=== PATIENT | female | born 1940 | race Caucasian/White ===

== ENCOUNTER 2019-04-05 19:38 | Emergency (ER) | payer OTHER, BC ==
[2019-04-05] MEDS ORDERED: ALBUTEROL SO4 0.083% IH SOL 2.5 MG/3 ML VIAL.NEB. NEB ONE ×2 (19:44→20:52)
--- NOTE | 2019-04-05 19:46 | PDOC ---
Rapid Medical Evaluation Chief Complaint: Cold Symptoms Time Seen by Provider: 04/05/19 19:41 Medical Evaluation: 04/05/19 19:42 c/o coyugh, chest discomfort and sore throat. just returned from [place], on cruise, + chills. PE; patient alert ox3. breath sounds clear A: cough with uri P: xray albuterol PMHX: Graves 04/05/19 19:45 Discharge Disposition - Diagnosis URI with cough and congestion - Referrals - Patient Instructions - Post Discharge Activity
[2019-04-05 19:47] VITALS: BP 123/69; PULSE 84; TEMP 97.7; BMI 28.3
[2019-04-05] MEDS ORDERED: DEXAMETHASONE LIQUID 0.5 MG/5 ML 240 ML BULK BOTTLE PO ONE (21:13)
[2019-04-05] MEDS ORDERED: DEXAMETHASONE SOD PHOSPHATE 10 MG/1 ML VIAL ONE (21:14)
--- NOTE | 2019-04-05 21:22 | PDOC ---
History of Present Illness - General Chief Complaint: Cold Symptoms Stated Complaint: COUGH Time Seen by Provider: 04/05/19 19:41 - History of Present Illness Initial Comments: 04/05/19 21:21 78-year-old female with a past medical history of hypothyroidism and irritable bowel syndrome presents for evaluation of cough and chills with associated headache when she coughs. She just returned from a long 14 day cruise from [place] she was exposed to different air conditioning units in different venues Past History - Past Medical History Allergies/Adverse Reactions: Allergies Allergy/AdvReac Type Severity Reaction Status Date / Time No Known Allergies Allergy Verified 04/05/19 20:40 Home Medications: Ambulatory Orders Azithromycin [Zithromax -] 250 mg PO UTDICT #6 tab 04/05/19 Levothyroxine [Synthroid -] 1 PO DAILY 04/05/19 Nebulizer and Compressor [Pediatric Dog Nebulizer Systm] 1 each MC ASDIR PRN #1 each 04/05/19 Sodium Chloride Inhalation [Normal Saline For Inhalation -] 3 ml IH ASDIR #60 vial.neb 04/05/19 COPD: No - Suicide/Smoking/Psychosocial Hx Smoking History: Former smoker Have you smoked in the past 12 months: No If you are a former smoker, when did you quit?: 40 Information on smoking cessation initiated: No Hx Alcohol Use: No Drug/Substance Use Hx: No Review of Systems - Review of Systems Constitutional: Yes: Chills, Diaphoresis. No: Fever Respiratory: Yes: Cough, Orthopnea, Shortness of Breath, Wheezing Neurological: Yes: Headache *Physical Exam - Vital Signs Last Vital Signs Temp Pulse Resp BP Pulse Ox 97.7 F 84 18 123/69 98 04/05/19 19:44 04/05/19 19:44 04/05/19 19:44 04/05/19 19:44 04/05/19 19:44 - Physical Exam Comments: 04/05/19 21:20 HEAD: NC/AT EYES: Conjuntiva clear Ears: Canals and TM's normal NOSE: No d/c THROAT: Moist mucous membrances, oral pharanx clear, uvula midline NECK: Supple without adenopathy CARDIAC: S1 S2 LUNGS: Faint rhonchi bilateral bases otherwise clear ABDOMEN: Soft NT ND MS: Full ROM in all joints without edema NEUROLOGIC: No gross sensory or motor deficits, NVID SKIN: Normal color and temperature no lesions or rashes ED Treatment Course - Medications Given in the ED: ED Medications Discontinued Medications Generic Name Dose Route Start Last Admin Trade Name Loni PRN Reason Stop Dose Admin Dexamethasone 10 mg 04/05/19 21:13 04/05/19 21:15 Decadron Liquid - PO 04/05/19 21:14 1 ml ONCE ONE Administration Medical Decision Making - Medical Decision Making 04/05/19 21:19 78-year-old female with symptoms of pneumonia. Suspicious retrocardial infiltrate. She was on a cruise ship and exposed to different air conditioners in different areas she was away from for 2 weeks. I suspect Legionella I will treat her with azithromycin have her follow-up with her PCP. *DC/Admit/Observation/Transfer Diagnosis at time of Disposition: URI with cough and congestion, Pneumonia - Discharge Dispostion Disposition: HOME Condition at time of disposition: Stable Decision to Admit order: No - Prescriptions Prescriptions: Azithromycin [Zithromax -] 250 mg PO UTDICT #6 tab Nebulizer and Compressor [Pediatric Dog Nebulizer Systm] 1 each MC ASDIR PRN #1 each PRN Reason: Cough Sodium Chloride Inhalation [Normal Saline For Inhalation -] 3 ml IH ASDIR #60 vial.neb - Referrals Referrals: Andrea Woods MD [Primary Care Provider] - - Patient Instructions Printed Discharge Instructions: Pneumonia-Adult, Legionnaires' Disease, Atypical Pneumonia, DI for Atypical Pneumonia, DI for Legionnaires Disease, DI for Pneumonia -- Adult Additional Instructions: His take the antibiotic as directed. Return to the emergency room for worsening symptoms. Follow-up with your primary care doctor in 1-2 days for further evaluation and treatment options. Please use the nebulizer with normal saline as directed. You were given a long-acting steroid in the emergency room which should suppress her cough and help her breathing.Please take yogurt with live cultures - Post Discharge Activity
== END 2019-04-05 21:24 | disposition home or self-care (01) ==
LOC: JERFT 19:38
PROC: 3E0F7GC Introduction of Other Therapeutic Substance into Respiratory Tract, Via Natural or Artificial Opening (ICD-10-PCS; principal; 2019-04-05)
DX: J18.9 Pneumonia, unspecified organism (principal); J06.9 Acute upper respiratory infection, unspecified; R05 Cough; R09.89 Other specified symptoms and signs involving the circulatory and respiratory systems
CPT/HCPCS: 71046-TC-FY; 94640; 99281-25